=== PATIENT | female | born 1975 | race Caucasian/White ===

== ENCOUNTER → 2023-08-07 14:59 | Outpatient (CLI) | payer OTHER, MEDICAID, SELFPAY ==
--- NOTE | 2023-08-07 15:01 | DI.RAD.S_ITS ---
PROCEDURE: XR WRIST LT MIN 3V INDICATIONS: Non-healing scaphoid fx x4 months TECHNIQUE: 4 views of the wrist were acquired. COMPARISON: None. FINDINGS: Bones: Radiolucency is seen in mid to lateral portion of scaphoid waist fracture site and measures 1 millimeter in width concerning for nonunion. No definite radiographic evidence of avascular necrosis. No suspicious bony lesions. Soft tissues: No suspicious soft tissue calcifications. 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 No new fracture or dislocation. No radiographic evidence of avascular necrosis. Dictated by: Artem Carmona M.D. on 08/07/2023 at 16:46 Approved by: Artem Carmona M.D. on 08/07/2023 at 16:50
== END ==
PROVIDERS: PCP Family Medicine; Referring Provider Family Medicine; Visit Provider Family Medicine
DX: S62.022K Displaced fracture of middle third of navicular [scaphoid] bone of left wrist, subsequent encounter for fracture with nonunion (principal)
CPT/HCPCS: 73110